=== PATIENT | female | born 1950 | race Caucasian/White ===

== ENCOUNTER 2018-01-31 18:13 | Emergency (ER) | payer OTHER, MEDICARE ==
[~2018-01-31] VITALS: Ht 157.5 cm; Wt 63.5 kg
[2018-01-31 18:19] VITALS: BP_SYST 142
--- NOTE | 2018-01-31 18:20 | NUR ---
Patient triaged and placed in waiting room . VSS and patient appears in no acute distress at this time. Accompanied by family , awaiting available bed, and MD notified of need for MSE.
--- NOTE | 2018-01-31 20:25 | NUR ---
Patient to ER bed 8 to gown for evaluation.
--- NOTE | 2018-01-31 20:30 | NUR ---
Patient to ER via triage for evaluation of headache and left hip pain s/p slip and fall while in shower. No LOC reported, no neck or back pain. Patient is awake, alert and oriented in no acute distress, vital signs stable, respirations even and unlabored, skin warm and dry to touch. Family remains at bedside, awaiting evaluation by ER MD, will continue to observe and assess.
--- NOTE | 2018-01-31 20:35 | NUR ---
Patient to radiology for films in stable condition, patient able to ambulate without difficulty with slow, steady gait.
--- NOTE | 2018-01-31 21:00 | NUR ---
Patient returned from radiology in no acute distress, ambulating without difficulty with slow, steady gait.
--- NOTE | 2018-01-31 21:30 | NUR ---
ER at bedside examining patient.
[2018-01-31 22:30] VITALS: BP_SYST 130
--- NOTE | 2018-01-31 22:30 | NUR ---
Patient given written and verbal discharge instructions and verbalizes understanding. ER MD discussed with patient the results and treatment provided. Patient in stable condition. ID arm band removed. No RX given. Patient educated on pain management and to follow up with PMD. Pain Scale 0. Opportunity for questions provided and answered. Patient left ER in no acute distress, able to ambulate without difficulty with slow, steady gait with visitor at bedside.
== END 2018-01-31 22:30 | disposition home or self-care (01) ==
LOC: SED 18:13
DX: S30.0XXA Contusion of lower back and pelvis, initial encounter (principal); S09.90XA Unspecified injury of head, initial encounter; R03.0 Elevated blood-pressure reading, without diagnosis of hypertension; M81.0 Age-related osteoporosis without current pathological fracture; W01.198A Fall on same level from slipping, tripping and stumbling with subsequent striking against other object, initial encounter; Y93.01 Activity, walking, marching and hiking; Y92.89 Other specified places as the place of occurrence of the external cause; Y99.8 Other external cause status
CPT/HCPCS: 70450-TC; 71045; 72125-TC; 72170-TC; 73502; 99284